=== PATIENT | female | born 1985 | race Caucasian/White ===

== ENCOUNTER 2024-08-18 11:07 | Outpatient (AMB) | payer OTHER, SELFPAY ==
[2024-08-18 11:21] VITALS: BP 127/67; PULSE 81; O2SAT 97; BMI 45.8
--- NOTE | 2024-08-18 11:21 | MHC.OFFVIS ---
Vital Signs 08/18/24 11:21 Height 4 ft 11 in Weight 227 lb BMI 45.8 BP 127/67 Blood Pressure Location Lt brachial Position Sitting Pulse 81 Pulse Source Doppler Pulse Oximetry (%) 97 Oxygen Delivery Method Room Air Intake Visit Reasons: Shortness of breath Allergies No narcotics Adverse Reaction (Unknown, Uncoded 08/18/24 11:26) Unknown HPI HPI Shortness of breath: Details: 39-year-old lady, former under 15 pack-year smoker, quit 2020 with underlying dyspnea including at rest and on exertion with prior workup at [facility] with equivocal results if for pulmonary evaluation. Patient complains of episodes of dyspnea that occur at rest or with exertion, and duo not appear to be provoked by anything. She is employed with no exposure to industrial dusts. She has no pets. Patient grew up in foster care and does not know her family health history. She is using CPAP for underlying sleep apnea. FOR[facility]LY [facility], [facility] Social History (Updated 08/18/24 @ 11:34 by Funmilayo Delgado Dian) Patient Tobacco Use Status: Former Tobacco user Tobacco use type: Cigarette Years Smoked: quit 2018, started age 15, 10 cig a day Review of Systems Const Denies fatigue Card Denies chest pain, Denies pedal edema, Reports dyspnea, Reports dyspnea on exertion, Reports orthopnea and Denies paroxysmal nocturnal dyspnea Resp Denies cough, Denies hemoptysis, Denies excessive phlegm production, Reports dyspnea, Reports dyspnea on exertion and Denies wheezing GI Denies heartburn Endo Denies fatigue Aller/Immun Denies seasonal rhinorrhea and Denies wheezing Physical Exam Vital Signs: Last Vital Signs Pulse 81 08/18/24 11:21 BP 127/67 08/18/24 11:21 Pulse Ox 97 08/18/24 11:21 Oxygen Delivery Method Room Air 08/18/24 11:21 BMI result Body Mass Index 45.8 Const General: no acute distress and alert Nutritional Appearance: obese Orientation/consciousness: Other orientation findings ( oriented) HEENT Head: Yes atraumatic Eyes General: appearance normal, both eyes and all related structures Sclerae: sclerae normal EOM: EOMs intact bilaterally Neck Neck: Yes supple Lymphatic: no lymphadenopathy noted Resp Effort & Inspection: normal respiratory effort and no use of accessory muscles Auscultation: clear to auscultation bilaterally Cardio Rate: regular rate Rhythm: regular rhythm Heart sounds: no gallops, no murmurs and no rubs Skin General skin exam: other ( warm) Extrem General: No clubbing, No cyanosis and No edema Assessment & Plan Assessment & Plan (1) Dyspnea on exertion: Code(s): R06.09 - Other forms of dyspnea Category: Medical Plan: Unclear etiology. Will obtain pulmonary function test from outside hospital. Will obtain 2D echocardiogram and cardiopulmonary exercise test. (2) BIB (obstructive sleep apnea): Code(s): G47.33 - Obstructive sleep apnea (adult) (pediatric) Category: Medical Plan: Currently on CPAP therapy. Continue CPAP therapy. Orders: Orders CA echo transthoracic complete Today R06.09 - Other forms of dyspnea CA cardiopulmonary stress test Today R06.09 - Other forms of dyspnea Coding Level of Care Code New Pt Level 4 (48308) Diagnoses Dyspnea on exertion R06.09 BIB (obstructive sleep apnea) G47.33
== END 2024-08-18 11:51 | disposition home or self-care (01) ==
PROVIDERS: Visit Provider Internal Medicine Pulmonary Disease
DX: R06.09 Other forms of dyspnea (principal); G47.33 Obstructive sleep apnea (adult) (pediatric)
CPT/HCPCS: 99204

== ENCOUNTER → 2024-09-07 08:40 | Outpatient (REF) | payer OTHER, SELFPAY ==
--- NOTE | 2024-09-07 08:43 | CA_ITS ---
Transthoracic Echocardiogram Patient (Last, First, Middle): Alejo Saucedo, Gender: Female Date of : 1985 Age: 39 Procedure Date: 09/07/2024 Procedure Type: Transthoracic Echocardiogram Location: OP Height: 149.86 cm Weight: 103.42 kg BSA: 1.95 m2 Heart Rate: 77 bpm BP: 110 / 70 mmHg Flue Dust Laborer: SYDNEE Donald MD: Mono Figueroa MD Agriculture Science Teacher: Adam Wesley MD Symptoms: R06.09 - Other forms of dyspnea Study Quality: Adequate ECG Rhythm: Sinus Conclusions: - Essentially normal study Findings Left Ventricle Normal left ventricular size, thickness, and systolic function. The visually estimated ejection fraction is between 60-65%. Diastolic function is normal for age. Right Ventricle Normal right ventricular cavity size and systolic function. Atria Both atria are normal in size. There is no evidence of interatrial shunt. Aortic Valve Normal aortic valve structure and function. There is no aortic valve stenosis. There is no aortic valve regurgitation. Mitral Valve Normal mitral valve structure and function. There is trace mitral valve regurgitation. There is no mitral valve stenosis. Pulmonic Valve The pulmonic valve is likely normal. Tricuspid Valve Normal tricuspid valve structure. There is trace tricuspid valve regurgitation. The right ventricular systolic pressure is normal. The right ventricular systolic pressure is 19 mmHg. Normal right atrial pressure. There is no evidence of pulmonary hypertension. Great Vessels All visible segments of the aorta are normal in size. The pulmonary artery was not well visualized. Venous The inferior vena cava is normal in size and collapses greater than 50% with inspiration. Pericardium/Pleural There is no evidence of pericardial effusion. Prior Study Comparison No prior study available for comparison. Measurements 2D Linear Measurements IVSd: 0.91 0.6-0.9/0.6-1.0 cm LVIDd: 4.24 3.9-5.3/4.2-5.9 cm LVIDd Index: 2.17 2.4-3.2/2.2-3.1 cm/m2 LVIDs: 2.81 2.0-3.6 cm LVPWd: 1.10 0.7-1.1 cm LA Diam: 3.30 2.7-3.8/3.0-4.0 cm LAIDs Index: 1.69 1.5-2.3 cm/m2 LV Mass: 174.39 67-162/88-224 g LV Mass Index: 89.43 43-95/49-115 g/m2 LVOT Diam: 2.10 3.0+(-)1.3 cm 2D Systolic Function EF 4C: 61.90 >55% EF 2C: 61.80 >55% EF BiP: 61.50 >55% Mitral Valve MV Pk E: 1.13 MV PK A: 0.65 MV Decel Time: 183.00 E/A: 1.70 E'Lateral: 14.50 E'Medial: 11.60 E/E' Med: 9.70 E/E' Lat: 7.80 PHT: 54.00 MVA PHT: 4.07 Decel Cidra: 6.15 Aortic Valve AoV Pk Olvin: 1.40 AoV Mn Olvin: 1.00 AoV VTI: 0.29 AoV Pk Grad: 8.00 Aov Mn Grad: 5.00 ALBERT Cont.VTI: 3.02 LVOT LVOT Pk Olvin: 1.32 LVOT Mn Olvin: 0.93 LVOT VTI: 0.25 LVOT Pk Grad: 7.00 LVOT Mn Grad: 4.00 LVOT Diam: 2.10 LVOT Area: 3.46 Diastolic Function MV Pk E: 1.13 MV Pk A: 0.65 E/A: 1.70 E'Medial: 11.60 E/E' Med: 9.70 E' Laterial: 14.50 E/E' Lat: 7.80 Right Ventricle TAPSE (mm): 23.50 TVS' Olvin: 13.90 Tricuspid Valve TR Pk Olvin: 2.02 TR Pk Grad: 16.00 RA Press: 3.00 RVSP: 19.00 Great Vessels Aorta Sinus of Valsalva: 2.60 2.0-3.5 cm Ao Asc: 2.50 2.1-3.4 cm Ao Arch: 2.20 Pulmonary Valve PV Pk Olvin: 1.06 Peak PV Grad: 4.00 Updated in Other Vendor System with Status of Final Adam Wesley MD electronically signed on 09/07/2024 3:04:29 PM with status of Final
== END ==
LOC: HO.CARD 08:40
PROVIDERS: Visit Provider Internal Medicine Pulmonary Disease
DX: R06.09 Other forms of dyspnea (principal)
CPT/HCPCS: 93306

== ENCOUNTER → 2024-09-07 08:43 | Outpatient (BNV) | payer OTHER, SELFPAY | PROVIDERS: Visit Provider Internal Medicine Cardiovascular Disease | DX: R06.09 Other forms of dyspnea (principal) | CPT/HCPCS: 93306 ==